=== PATIENT | male | born 1960 | race Caucasian/White ===

== ENCOUNTER 2018-03-11 14:44 | Day surgery (SDC) | payer MEDICARE, SELFPAY ==
[2018-03-11] VITALS (8 sets, daily range): BP systolic 84–132; BP diastolic 33–83; PULSE 66–81; RESP 15–20; TEMP 36.1–36.9; O2SAT 94–99; BMI 26.6
--- NOTE | 2018-03-11 | PATH_ITS ---
[facility] Accession Number: [id number] . 01 Material submitted: . PART A: CECAL POLYP PART B: ASCENDING COLON POLYP PART C: TRANSVERSE COLON POLYP PART D: SIGMOID POLYP . 02 Diagnosis: A. Cecal Polyp: Sessile serrated adenoma. . B. Ascending Colon Polyp: Sessile serrated adenoma. . C. Transverse Colon Polyp: Tubulovillous adenoma. Negative for high-grade dysplasia or malignancy. . D. Sigmoid Colon Polyp: Hyperplastic polyp. MRV/03/13/2018 . 02 Electronically signed: . Liban Mcclure MD, PhD, Pathologist NPI- [id number] . 01 Gross description: . Part A: CECAL POLYP: Received in formalin is 1 fragment(s) of richardson, soft tissue measuring 0.8 x 0.5 x 0.4 cm submitted entirely in 1 cassette(s) Part B: ASCENDING COLON POLYP: Received in formalin are 2 fragment(s) of richardson, soft tissue measuring 0.8 x 0.4 x 0.4 cm to 0.7 x 0.4 x 0.4 cm which are inked, bisected and submitted entirely in 2 cassette(s) Part C: TRANSVERSE COLON POLYP: Received in formalin are 2 fragment(s) of richardson, soft tissue measuring 0.7 x 0.4 x 0.3 cm to 0.7 x 0.3 x 0.3 cm which are inked, bisected and submitted entirely in 2 cassette(s) Part D: SIGMOID POLYP: Received in formalin is 1 fragment(s) of richardson, soft tissue measuring 0.4 x 0.3 x 0.2 cm submitted entirely in 1 cassette(s) /CKI /CKI . 02 Pathologist provided ICD-10: D12.0, D12.2, D12.3, K63.5 . 02 CPT . 017210, 952422, [id number], [id number] Performed at: 01 [facility] [address] [place] [id number] MD Zeeshan Trevino MD Phone: [phone] Performed at: 02 [facility] [address] [place] [address] [id number] MD Ross Bashir MD Phone: [phone]
--- NOTE | 2018-03-11 14:59 | PM.HP.1 ---
History of Present Illness Date Patient Seen: 03/11/18 Chief complaint: colonoscopy [id number] Narrative: 57-year-old male with significant alcohol use who is here for polyp surveillance. The patient underwent a colonoscopy December 17, 2013 with a tubulovillous adenoma removed. He is due for polyp surveillance. He currently has no active bleeding. He was seen at our office on 01/07/2018 please refer to that note for further details. Meds Home Medications Medication Instructions Recorded Confirmed Type [id number] 50 mcg PO DAILY 03/11/18 03/11/18 History losartan 50 mg PO DAILY 03/11/18 03/11/18 History multivitamin [Multiple Vitamins] 1 tab PO DAILY 03/11/18 03/11/18 History omega 6-xda-gxy-fish oil [Fish Oil] 1,000 mg PO DAILY 03/11/18 03/11/18 History trazodone 50 mg PO DAILY 03/11/18 03/11/18 History Allergies Allergy/AdvReac Type Severity Reaction Status Date / Time ibuprofen Allergy Seizure Verified 03/11/18 15:08 Review of Systems Review of Systems All systems reviewed & are unremarkable except as noted in HPI and below Exam Narrative Exam Narrative: General: Patient is well developed, not in apparent distress Cardiovascular: Regular rate and rhythm, no murmurs, rubs, or gallops; no evidence of edema; no palpable abdominal aortic aneurysm Gastrointestinal: Normoactive bowel sounds, soft, nontender, nondistended, no rebound tenderness, no hepatosplenomegaly, no evidence of hernia Assessment & Plan Plan: Assessment/Plan Narrative: The patient is a 57 year old male with a history of alcoholism currently sober who is here for polyp surveillance. Patient has no active GI issues. ? Alcoholic cirrhosis although no evidence of portal hypertension and no varices on upper endoscopy December 2017. During his last colonoscopy with conscious sedation the patient had significant pain and awoke during the procedure. We will be planning this procedure with an anesthesia provider to ensure the patient's comfort and adequate sedation. Regarding the procedure(s), the risks and potential complications, benefits, and alternatives (including not doing the procedure) were discussed with the patient. The risks include but are not limited to bleeding, infection, perforation which may require surgical intervention, missed lesions, and adverse reactions to sedative medicines. After a question and answer period, the patient agreed to proceed with the procedure(s).
--- NOTE | 2018-03-11 15:12 | P.HP_ITS ---
History of Present Illness Date Patient Seen: 03/11/18 Chief complaint: colonoscopy [id number] Narrative: 57-year-old male with significant alcohol use who is here for polyp surveillance. The patient underwent a colonoscopy December 17, 2013 with a tubulovillous adenoma removed. He is due for polyp surveillance. He currently has no active bleeding. He was seen at our office on 01/07/2018 please refer to that note for further details. Meds Home Medications Medication Instructions Recorded Confirmed Type [id number] 50 mcg PO DAILY 03/11/18 03/11/18 History losartan 50 mg PO DAILY 03/11/18 03/11/18 History multivitamin [Multiple Vitamins] 1 tab PO DAILY 03/11/18 03/11/18 History omega 5-ccu-miy-fish oil [Fish Oil] 1,000 mg PO DAILY 03/11/18 03/11/18 History trazodone 50 mg PO DAILY 03/11/18 03/11/18 History Allergies Allergy/AdvReac Type Severity Reaction Status Date / Time ibuprofen Allergy Seizure Verified 03/11/18 15:08 Review of Systems Review of Systems All systems reviewed & are unremarkable except as noted in HPI and below Exam Narrative Exam Narrative: General: Patient is well developed, not in apparent distress Cardiovascular: Regular rate and rhythm, no murmurs, rubs, or gallops; no evidence of edema; no palpable abdominal aortic aneurysm Gastrointestinal: Normoactive bowel sounds, soft, nontender, nondistended, no rebound tenderness, no hepatosplenomegaly, no evidence of hernia Assessment & Plan Plan: Assessment/Plan Narrative: The patient is a 57 year old male with a history of alcoholism currently sober who is here for polyp surveillance. Patient has no active GI issues. ? Alcoholic cirrhosis although no evidence of portal hypertension and no varices on upper endoscopy December 2017. During his last colonoscopy with conscious sedation the patient had significant pain and awoke during the procedure. We will be planning this procedure with an anesthesia provider to ensure the patient's comfort and adequate sedation. Regarding the procedure(s), the risks and potential complications, benefits, and alternatives (including not doing the procedure) were discussed with the patient. The risks include but are not limited to bleeding, infection, perforation which may require surgical intervention, missed lesions, and adverse reactions to sedative medicines. After a question and answer period, the patient agreed to proceed with the procedure(s).
--- NOTE | 2018-03-11 15:12 | PM.OP.ENDO ---
Operative Date/Time/Diagnoses Date of procedure: 03/11/18 Procedure Notes Procedure in detail: Surgeon: Kareem Brooks MD Procedure: Colonoscopy with snare polypectomy Preoperative diagnosis: Colon polyp surveillance Postoperative diagnosis: 4 colon polyps status post polypectomy, left-sided diverticulosis, grade 2-3 internal hemorrhoids Medications: Monitored anesthesia care Preanesthesia Assessment An H and P was performed/updated and the Px?s ASA class is 3. The procedure was discussed in detail with the patient. The potential risks and complications including infection, bleeding, missed lesions, perforation, need for surgery in case of perforation, prolonged hospital stay, and were explained. A brief question and answer period was allotted and once all questions were answered, informed consent was obtained. The patient was brought back to the procedure room and placed on standard monitoring. The patient?s vital signs were monitored continuously throughout the entire procedure. Prior to starting, a timeout was performed to confirm the patient?s identity, allergies, medications, and procedure. Procedure in detail The patient was placed in left lateral decubitus position and once adequate sedation was obtained a ADRI was performed. The digital rectal examination revealed no palpable lesions. The tip of the colonoscope was placed in the anal canal and advanced without difficulty all the way to the cecum which was identified by the ileocecal valve and the appendiceal orifice. The terminal ileum was intubated to a distance of 5 cm with no evidence of mucosal abnormality. In the cecum there was note of a 5 mm sessile polyp which was removed via cold snare with minimal bleeding. In the ascending colon there was note of a 12 mm sessile polyp which was removed in its entirety by means of hot snare with no bleeding. In the transverse colon there was note of a 15 mm sessile polyp which was removed in its entirety by means of hot snare with no bleeding. In the sigmoid colon there was note of a 4 mm sessile polyp which was removed in its entirety by means of cold snare with minimal bleeding. All polyps were retrieved successfully. The ascending and transverse polyp needed to be transected using a snare in order to be retrieved through the scope channel. There is note of multiple medium-size diverticula in the descending and sigmoid colon. Retroflexion was performed in the rectum which revealed grade 2-3 internal hemorrhoids. The patient tolerated the procedure well and will be brought back to the recovery area to be discharged once criteria are met. The prep was judged to be good/excellent and adequate to identify polyps less than 5 mm. The withdrawal time was 16.5 min. Complications There were no complications and estimated blood loss was minimal. Recommendations: Resume previous diet Continue outPx medications Follow up pathology results Repeat colonoscopy in 3 years. This may change depending on pathology results Patient should avoid aspirin and NSAIDs for 1 week due to multiple polypectomies An emergency contact number was given to the patient for any complications related to the procedure
--- NOTE | 2018-03-11 15:13 | PM.DS.1 ---
History of Present Illness Chief complaint: colonoscopy [id number] Narrative: 57-year-old male with significant alcohol use who is here for polyp surveillance. The patient underwent a colonoscopy December 17, 2013 with a tubulovillous adenoma removed. He is due for polyp surveillance. He currently has no active bleeding Discharge Providers Discharge provider: Kareem Brooks MD Exam Narrative Exam Narrative: General: Patient is well developed, not in apparent distress Cardiovascular: Regular rate and rhythm, no murmurs, rubs, or gallops; no evidence of edema; no palpable abdominal aortic aneurysm Gastrointestinal: Normoactive bowel sounds, soft, nontender, nondistended, no rebound tenderness, no hepatosplenomegaly, no evidence of hernia Discharge Plan Discharge Plan Patient Disposition: Home, Self-Care Discharge comment: Avoid aspirin and NSAIDs for 1 week due to multiple polypectomies performed Discharge Med Rec/Prescriptions Prescriptions: Continue multivitamin [Multiple Vitamins] Tablet 1 tab PO DAILY RF: 0 losartan 50 mg Tablet 50 mg PO DAILY RF: 0 trazodone 50 mg Tablet 50 mg PO DAILY RF: 0 omega 5-etw-abk-fish oil [Fish Oil] 1,000 mg (120 mg-180 mg) Capsule 1,000 mg PO DAILY RF: 0 [id number] 50 mcg-75 mcg -100 mg Capsule 50 mcg PO DAILY RF: 0 Discharge Orders: Discharge (Order); Ordered 03/11/18 Ordered By: Kareem Brooks Provider Discharge Instructions Diet: Diet as Tolerated Visit Report/Discharge Packet Stand Alone Forms: Surgery Discharge Discharge Data Attending Provider: Kareem Brooks
[2018-03-11] MEDS: LACTATED RINGERS 1,000 ML 42 ML IV (15:39)
== END 2018-03-11 17:09 | disposition home or self-care (01) ==
PROVIDERS: Visit Provider Internal Medicine Gastroenterology
PROC: 0DJD8ZZ Inspection of Lower Intestinal Tract, Via Natural or Artificial Opening Endoscopic (ICD-10-PCS; CPT 45378; principal; 2018-03-11 15:30)
DX: Z86.010 Personal history of colon polyps (principal); K57.30 Diverticulosis of large intestine without perforation or abscess without bleeding; K64.2 Third degree hemorrhoids; D12.2 Benign neoplasm of ascending colon; D12.3 Benign neoplasm of transverse colon; D12.0 Benign neoplasm of cecum; K70.30 Alcoholic cirrhosis of liver without ascites; F10.11 Alcohol abuse, in remission; K63.5 Polyp of colon
CPT/HCPCS: 45385; 88305; J2250; J2704; J3010